=== PATIENT | male | born 1985 | race Caucasian/White ===

== ENCOUNTER 2017-06-28 10:44 | Inpatient (IN) | payer OTHER ==
[~2017-06-28] VITALS: Ht 167.6 cm; Wt 71.2 kg
[2017-06-28] MEDS ORDERED: SODIUM CHLORIDE 0.9% 1,000 ML IVB ONE (12:59)
[2017-06-28 13:07] LABS: Basophils # (auto) 0.1 uL; Basophils % (auto) 0.2 % (0.0-2.0); Eosinophils # (auto) 0 uL; Hematocrit 48.2 % (41.0-53.0); Hemoglobin 16.9 g/dL (13.5-17.5); Lymphocytes # (auto) 1.1 uL; Mean Corpuscular Hemoglobin 30.8 pg (28.0-32.0); Mean Corpuscular Hgb Conc. 35.1 g/dL (32.0-36.0); Mean Corpuscular Volume 87.7 fL (80.0-100.0); Mean Platelet Volume 7.9 fL (6.9-10.8); Monocytes # (auto) 1.7 uL; Monocytes % (auto) 7.6 % (0.0-12.0); Neutrophils # (auto) 19.9 uL; Neutrophils % (auto) 87.2 % (37.0-80.0); Platelet Count (auto) 251 10^3/uL (140-450); White Blood Cell 22.8 10^3/uL (4.4-10.8)
[2017-06-28 13:25] LABS: Albumin 4.6 g/dL (3.4-5.0); Bilirubin, Total 0.6 mg/dL (0.2-1.0); Calcium 8.8 mg/dL (8.5-10.1); Potassium 5.1 mmol/L (3.5-5.1); Total Protein 8.2 g/dL (6.4-8.2)
[2017-06-28 14:16] LABS: Lactic Acid w/Reflex 2.2 mmol/L (0.4-2.0)
[2017-06-28 14:24] LABS: REFLEX LACTIC ACID YES OR NO YES
[2017-06-28] MEDS ORDERED: SODIUM CHLORIDE 0.9% 1,000 ML IV ONE ×3 (15:00→16:00)
[2017-06-28] MEDS ORDERED: cefTRIAXone 1GM/50ML D5W 50 ML IV ONE (16:00)
[2017-06-28] MEDS ORDERED: ONDANSETRON HCL 4 MG/2 ML VIAL IV ONE (16:00)
[2017-06-28] MEDS ORDERED: DOCUSATE SOD 100 MG CAP PO PRN (18:30)
[2017-06-28] MEDS ORDERED: TEMAZEPAM 15 MG CAP PO PRN (18:30)
[2017-06-28] MEDS ORDERED: ONDANSETRON HCL 4 MG/2 ML VIAL IV PRN (18:30)
[2017-06-28] MEDS ORDERED: HYDROcodone-ACET 5/325MG TAB PO PRN (18:30)
[2017-06-28] MEDS ORDERED: ACETAMINOPHEN 325 MG TAB PO PRN (18:30)
[2017-06-28 18:32] LABS: Urine RBC None Seen /hpf (0 - 3)
[2017-06-28] MEDS ORDERED: VANCOMYCIN PER PHARMACY 0 MG IV SCH (18:45)
[2017-06-28 18:52] LABS: Urine Bilirubin Negative (Negative); Urine Blood Negative /uL (Negative); Urine Color Yellow (Yellow); Urine Glucose Normal (Normal); Urine Ketone 4+ (Negative); Urine Mucus FEW (None Seen); Urine Nitrite Negative (Negative); Urine Squamous Epithelial Cell FEW /hpf (<5); Urine Urobilinogen Normal (Negative)
[2017-06-28] MEDS: SODIUM CHLORIDE 0.9% 1,000 ML IV SCH (18:55)
[2017-06-28 22:00] VITALS: BP 126/57
[2017-06-28] MEDS: VANCOMYCIN 1GM/250ML 250 ML IV SCH (22:52)
[2017-06-29] MEDS: SODIUM CHLORIDE 0.9% 1,000 ML IV SCH (03:11)
[2017-06-29 05:00] VITALS: BP 123/72
[2017-06-29 05:54] LABS: Basophils # (auto) 0 uL; Basophils % (auto) 0.2 % (0.0-2.0); Eosinophils # (auto) 0.1 uL; Eosinophils % (auto) 0.8 % (0.0-7.0); Hematocrit 39.9 % (41.0-53.0); Hemoglobin 14.1 g/dL (13.5-17.5); Lymphocytes # (auto) 2.7 uL; Lymphocytes % (auto) 25.7 % (10.0-50.0); Mean Corpuscular Hemoglobin 31.1 pg (28.0-32.0); Mean Corpuscular Hgb Conc. 35.4 g/dL (32.0-36.0); Mean Corpuscular Volume 87.9 fL (80.0-100.0); Mean Platelet Volume 8.2 fL (6.9-10.8); Monocytes # (auto) 1.1 uL; Monocytes % (auto) 10.2 % (0.0-12.0); Neutrophils # (auto) 6.7 uL; Neutrophils % (auto) 63.1 % (37.0-80.0); Platelet Count (auto) 180 10^3/uL (140-450); Red Cell Distribution Width 13.1 % (11.8-14.3); White Blood Cell 10.6 10^3/uL (4.4-10.8)
[2017-06-29 06:14] LABS: Albumin 2.8 g/dL (3.4-5.0); Calcium 7.8 mg/dL (8.5-10.1); Potassium 4.4 mmol/L (3.5-5.1)
[2017-06-29 06:16] LABS: BUN/Creatinine Ratio 18.3
[2017-06-29 06:18] LABS: Bilirubin, Total 0.8 mg/dL (0.2-1.0); Total Protein 5.3 g/dL (6.4-8.2)
[2017-06-29 08:32] VITALS: BP 127/61
[2017-06-29] MEDS: VANCOMYCIN 1GM/250ML 250 ML IV SCH ×2 (08:54→19:52)
[2017-06-29] MEDS: cefTRIAXone 1GM/50ML D5W 50 ML IV SCH (08:54)
[2017-06-29] MEDS: MULTIPLE VITAMIN TAB PO SCH (12:23)
[2017-06-29 12:40] VITALS: BP 125/74
[2017-06-29 17:00] VITALS: BP 125/72
[2017-06-29 20:00] VITALS: BP 129/78
[2017-06-29 22:00] VITALS: BP 129/78
[2017-06-30] MEDS: SODIUM CHLORIDE 0.9% 1,000 ML IV SCH (03:48)
[2017-06-30 05:25] VITALS: BP 139/79
[2017-06-30 06:29] LABS: Basophils # (auto) 0 uL; Basophils % (auto) 0.5 % (0.0-2.0); Eosinophils # (auto) 0.1 uL; Eosinophils % (auto) 1.2 % (0.0-7.0); Hematocrit 39.5 % (41.0-53.0); Hemoglobin 13.8 g/dL (13.5-17.5); Lymphocytes # (auto) 1.4 uL; Lymphocytes % (auto) 21.5 % (10.0-50.0); Mean Corpuscular Hemoglobin 30.5 pg (28.0-32.0); Mean Corpuscular Volume 87.1 fL (80.0-100.0); Mean Platelet Volume 8.3 fL (6.9-10.8); Monocytes # (auto) 0.7 uL; Monocytes % (auto) 10.6 % (0.0-12.0); Neutrophils # (auto) 4.4 uL; Neutrophils % (auto) 66.2 % (37.0-80.0); Nucleated Red Blood Cells % 0.1 %; Platelet Count (auto) 146 10^3/uL (140-450); Red Cell Distribution Width 12.9 % (11.8-14.3); White Blood Cell 6.7 10^3/uL (4.4-10.8)
[2017-06-30 06:57] LABS: Potassium 3.7 mmol/L (3.5-5.1)
[2017-06-30 07:06] LABS: BUN/Creatinine Ratio 12.5; Calcium 8.1 mg/dL (8.5-10.1)
[2017-06-30] MEDS: VANCOMYCIN 1GM/250ML 250 ML IV SCH (08:37)
[2017-06-30 09:00] VITALS: BP 127/73
[2017-06-30] MEDS: cefTRIAXone 1GM/50ML D5W 50 ML IV SCH (09:00)
[2017-06-30] MEDS: MULTIPLE VITAMIN TAB PO SCH (09:02)
[2017-06-30 13:00] VITALS: BP_SYST 105; BP_SYST 134; BP_DIAS 65; BP_DIAS 80
[2017-06-30 13:04] VITALS: BP 127/73
== END 2017-06-30 15:35 | disposition home or self-care (01) | DRG 872 ==
LOC: ER 10:44 → EDBD 10:44 → OVERFLOW 10:45 → WEST WING 19:30
PROVIDERS: ADMIT Internal Medicine; ATTEND Internal Medicine
DX: A41.9 Sepsis, unspecified organism (principal); K76.0 Fatty (change of) liver, not elsewhere classified; E86.0 Dehydration; N39.0 Urinary tract infection, site not specified; F17.210 Nicotine dependence, cigarettes, uncomplicated; N18.2 Chronic kidney disease, stage 2 (mild); Z82.49 Family history of ischemic heart disease and other diseases of the circulatory system; Z83.3 Family history of diabetes mellitus
CPT/HCPCS: 36415; 71010; 74176; 76775; 80048; 80053; 80202; 81001; 82150; 83605; 83690; 83735; 85025; 87040; 87086; 96361; 96365; 96375; J0696; J2405